=== PATIENT | female | born 1975 | race Asian ===

== ENCOUNTER 2023-09-15 14:12 | Emergency (ER) | payer BC ==
[~2023-09-15] VITALS: Ht 160 cm; Wt 48.1 kg
[2023-09-15 14:35] VITALS: TEMP 98.5
[2023-09-15] MEDS: IV NS 0.9% 1,000 ML BAG IV ONE (15:27)
[2023-09-15] MEDS ORDERED: SUMATRIPTAN SUCCINATE 6 MG/0.5 ML VIAL SQ ONE (15:30)
[2023-09-15] MEDS ORDERED: METOCLOPRAMIDE HCL 10 MG/2 ML VIAL ONE (15:30)
[2023-09-15 15:35] LABS: BASOPHILS % (AUTO) 0.5 % (0.0-2.0); EOSINOPHILS # (AUTO) 0.1 K/uL (0.0-0.7); EOSINOPHILS % (AUTO) 2.4 % (0.0-6.0); HEMATOCRIT 39 % (33-45); HEMOGLOBIN 12.7 g/dL (11.5-14.8); LYMPHOCYTES # (AUTO) 1.4 K/uL (0.8-4.8); LYMPHOCYTES % (AUTO) 24.4 % (20.0-44.0); MEAN CORPUSCULAR HEMOGLOBIN 27 PG (26.0-33.0); MEAN CORPUSCULAR HGB CONC 32 g/dl (31.0-36.0); MEAN CORPUSCULAR VOLUME 84 fL (82-100); MONOCYTES # (AUTO) 0.3 K/uL (0.1-1.30); MONOCYTES % (AUTO) 5.6 % (2.0-12.0); NEUTROPHILS # (AUTO) 3.8 K/uL (1.8-8.9); NEUTROPHILS % (AUTO) 67.1 % (43.0-81.0); PLATELET COUNT (AUTO) 242 K/uL (150-450); RED BLOOD CELL COUNT(AUTO) 4.68 MIL/uL (4.0-5.2); RED CELL DISTRIBUTION WIDTH 14.4 % (11.5-15.0); WHITE BLOOD COUNT (AUTO) 5.6 K/uL (4.3-11.0)
[2023-09-15] MEDS: SUMATRIPTAN SUCCINATE 6 MG/0.5 ML VIAL SQ ONE (15:38)
[2023-09-15] MEDS: METOCLOPRAMIDE HCL 10 MG/2 ML VIAL IV ONE (15:41)
[2023-09-15 15:46] LABS: ERYTHROCYTE SEDIMENTATION RATE 6 MM/HR (0-20)
[2023-09-15 15:49] LABS: INR 1.04 (0.91-1.10); PARTIAL THROMBOPLASTIN TIME 30.1 SEC (24.3-34.3)
[2023-09-15 15:58] LABS: ALBUMIN 3.9 g/dL (3.4-5.0); BILIRUBIN,DIRECT 0.1 mg/dL (0.0-0.2); BILIRUBIN,TOTAL 0.4 mg/dL (0.2-1.0); CREATININE 0.8 mg/dL (0.6-1.3); POTASSIUM 3.8 mmol/L (3.5-5.1); TOTAL PROTEIN, SERUM 7.5 g/dL (6.4-8.2)
[2023-09-15] MEDS ORDERED: IBUP-1953 PO (16:20)
[2023-09-15 17:02] VITALS: BP 128/84; O2SAT 98
== END 2023-09-15 17:02 | disposition home or self-care (01) ==
LOC: ER 14:35
DX: S05.11XA Contusion of eyeball and orbital tissues, right eye, initial encounter (principal); R51.9 Headache, unspecified; I10 Essential (primary) hypertension; X58.XXXA Exposure to other specified factors, initial encounter; Y93.89 Activity, other specified; Y92.89 Other specified places as the place of occurrence of the external cause; Y99.8 Other external cause status
CPT/HCPCS: 99285; 96374; 70450; 96361; 93005; 85025; 80048; 80076; 85652; 36415; 85730; 96372; J3030; J2765; J7030